=== PATIENT | female | born 1995 | race African-American/Black ===

== ENCOUNTER 2016-07-30 06:06 | Emergency (ER) ==
[2016-07-30 06:17] VITALS: BP 131/87
[2016-07-30 06:36] LABS: URINE CULTURE PL NEEDED? NO; URINE SOURCE CLEAN CATCH
[2016-07-30] MEDS ORDERED: NS 1,000 ML IV ONE (06:37)
[2016-07-30 06:49] LABS: BILIRUBIN URINE NEGATIVE (NEGATIVE); BLOOD URINE 4+ (NEGATIVE); CLARITY SL. CLOUDY (CLEAR); COLOR YELLOW; GLUCOSE URINE NEGATIVE (NEGATIVE); LEUKOCYTES URINE NEGATIVE (NEGATIVE); NITRITE URINE NEGATIVE (NEGATIVE); PROTEIN URINE 1+(30 mg/dL) mg/dL (NEGATIVE); SP GRAVITY URINE 1.025; UROBILINOGEN URINE NORMAL
--- NOTE | 2016-07-30 06:49 | PROVIDER DOCUMENTATION ---
HPI-Abdominal Pain/GI Problem - General Chief Complaint: Abdominal Pain Stated Complaint: PELVIC/PERIOD PAIN Time Seen by Provider: 07/30/16 06:22 Source: patient Allergies/Adverse Reactions: Patient Allergies Allergy/AdvReac Type Severity Reaction Status Date / Time venom-honey bee Allergy SWELLING Verified 07/30/16 06:17 [bee venom (honey bee)] venom-wasp [wasp venom] Allergy SWELLING Verified 07/30/16 06:17 - History of Present Illness-ABD Nature of Presenting Problems: Reports dysmenorrhea and lower bad pain since several weeks ago. Was seen at [facility] on 07/05/16 for it. Pt was given [place] (OCP) for her dysmenorrhea and her bleeding significantly slow down by now, but her lower abd pain got a whole lot worse. Denies F/C/N/V/preg. Denies vag discharge and no concerns for STD Abdominal Pain Onset Location: reports: suprapubic Pain Radiation: reports: no radiation Quality of Pain: reports: aching, cramping Severity in ED: reports: moderate Onset/Duration: reports: other (Severeal weeks ago) Timing: reports: still present Activities at Onset: reports: none Modifying Factors: improves with: nothing Associated Symptoms: reports: denies symptoms. denies: back/neck pain, chest pain, cough, fatigue, fever/chills, loss of appetite, malaise, nausea, shortness of breath, syncope, vomiting, weakness Dark Stools Present?: reports: none noticed Rectal Bleeding: reports: none Rectal Pain: reports: none Bruising or Bleeding Gums?: No Similar Symptoms Previously?: No Recently seen or treated by another doctor?: No Review of Systems - Adult - REVIEW OF SYSTEMS - ADULT Constitutional: reports: see HPI. denies: fever, fatique, weight gain, weight loss Eyes: reports: no symptoms reported. denies: discharge Ears, Nose, Mouth & Throat: reports: no symptoms reported Cardiovascular: reports: no symptoms reported. denies: chest pain Respiratory: reports: no symptoms reported Gastrointestinal: reports: see HPI, abdominal pain. denies: constipation, difficulty swallowing, frequent heartburn, nausea, poor appetite, rectal bleeding Genitourinary: reports: see HPI. denies: dysuria, discharge, hematuria, hesitency, urinary retention, urgency Musculoskeletal: reports: no symptoms reported Integumentary: reports: no symptoms reported Neurological: reports: no symptoms reported Psychiatric: reports: no symptoms reported Allergic/Immunologic: reports: no symptoms reported All Other Systems: Reviewed and Negative Past History - Adult - PAST MEDICAL HISTORY-ADULT Major Childhood Illnesses: reports: denies history Cardiovascular: reports: denies history Respiratory: reports: denies history Gastrointestinal: reports: denies history Obstetrical/Gynecological: reports: denies history Genitourinary: reports: denies history Musculoskeletal: reports: denies history Neurological: reports: headaches/migraines Psychiatric: reports: anxiety Endocrine/Immune: reports: denies history Other Conditions: reports: denies history - PRIOR SURGERIES/PROCEDURES Surgical/Procedure History: reports: other (wisdom teeth) - PRIOR HOSPITALIZATIONS Prior Hospitalizations: reports: none - IMMUNIZATION STATUS Childhood Immunizations: See Nurse Assessment Flu Vaccine: See Nurse Assessment - FAMILY HISTORY Family History: reviewed, not pertinent Physical Exam-General - PHYSICAL EXAM-ADULT Initial Vital Signs Reviewed: Yes - CONSTITUTIONAL General Appearance: appears well, alert, no apparent distress - EYES Eyes: PERRL/EOMI, pink conjunctivae - HEAD, EARS, NOSE, MOUTH & THROAT HENMT: normocephalic/atraumatic, moist mucous membranes, normal ENT inspection - NECK Neck: non-tender, full range of motion, supple - RESPIRATORY Respiratory: chest non-tender, lungs clear, normal breath sounds, no pleuratic chest pain - CARDIOVASCULAR Cardiovascular: normal peripheral pulses, regular rate, rhythm, no edema, no gallop, no JVD, no murmur - GASTROINTESTINAL (ABDOMEN) Abdominal Exam: normal bowel sounds, non tender, soft, no organomegaly, no pulsatile mass - GENITOURINARY Female Genitalia/Pelvic Exam: deferred, other (Pt's bleediing significantly slowed down and no concerns for STD, she denies preg.) - LYMPHATIC Lymphatic: no adenopathy - MUSCULOSKELETAL Back Exam: normal inspection, no CVA tenderness, no vertebral tenderness Extremity: normal range of motion, non-tender, normal gait, normal inspection - SKIN Integumentary: normal color, normal turgor, warm/dry - NEUROLOGIC Neurologic: grossly normal, no motor/sensory deficits, abnormal cerebellar tests - PSYCHIATRIC Psych/Mental Status: normal mood/affect, normal thought content, normal thought process, oriented x 3 Progress - CT/MRI 1 CT Study: other (CT A+P with IV contrast - distended gallbladder. No bowel obstruction. No abscess, no hydronephorosis.) Departure - Departure Time of Disposition Order: 08:59 DIAGNOSIS: Dysmenorrhea Abdominal pain Qualifiers: Abdominal location: lower abdomen, unspecified Qualified Code(s): R10.30 - Lower abdominal pain, unspecified Disposition: HOME 01 Certified Medical Emergency: Emergent Condition: Stable Additional Instructions: Follow up with [facility] for further management. Return to ER if your symptoms worsen. Plenty of roal fluids. Over the counter Iron pills. Prescriptions: Tramadol [Ultram] 50 mg PO Q8HR #15 tablet Referrals: Jonathan Jean-Baptiste MD [Primary Care Provider] -
[2016-07-30 06:53] LABS: MANUAL DIFF NEEDED? NO
[2016-07-30 07:02] LABS: BASO% 0.2 % (0.0-0.8); EOS# 0.07 X1000 (0.0-0.7); EOS% 0.8 % (0.0-10.0); HEMATOCRIT 27.2 % (37.0-47.0); HEMOGLOBIN 8.6 g/dL (12.0-16.0); IMM GRAN# 0.01 X1000 (0.0-0.04); IMM GRAN% 0.1 % (0.0-0.5); LYMPH% 38.6 % (20.5-51.1); MCH 27.5 PG (27-31); MCHC 31.6 g/dL (33-37); MCV 86.9 FL (81-99); MONO# 0.79 X1000 (0.11-0.59); MPV 8.7 FL (7.4-10.4); NEUT% 51.3 % (42.2-75.2); PLT 430 X1000 (130-400); RBC 3.13 XMIL (4.2-5.4)
[2016-07-30 07:26] LABS: AGAP 10; ALBUMIN 3.3 g/dL (3.5-5.0); ALKALINE PHOSPHATASE 47 U/L (32-104); AMYLASE 82 U/L (20-200); BUN 8 mg/dL (8-22); CALCIUM 8.7 mg/dL (8.8-10.2); CHLORIDE 110 mmol/L (98-107); COSMO 282; GOT 16 U/L (10-30); GPT 29 U/L (10-36); LIPASE 66 U/L (13-60); POTASSIUM 3.4 mmol/L (3.5-5.1); SODIUM 142 mmol/L (136-145); TCO2 23 mmol/L (25-35); TOTAL BILIRUBIN < 0.15 mg/dL (0.20-1.00); TOTAL PROTEIN 6.7 g/dL (6.3-8.3)
[2016-07-30 07:28] LABS: URINE EPITHELIAL CELLS >10 /HPF (<10); URINE RBC TNTC /HPF (<10); URINE WBC <10 /HPF (<10)
[2016-07-30] MEDS ORDERED: MORPHINE IV ONE (07:32)
[2016-07-30] MEDS ORDERED: ZOFRAN IV ONE (07:32)
--- NOTE | 2016-07-30 09:07 | Diag Imaging Result Document ---
PROCEDURE NAME: CT ABD/PELVIS W/ IV CONT ONLY - 07/30/2016 CT ABDOMEN AND PELVIS WITH INTRAVENOUS CONTRAST. DOSE REDUCTION TECHNIQUE NOT USED: COMPARISON: No comparison films. FINDINGS: The gallbladder is distended. No calcified stones or adjacent inflammation. Normal spleen, liver, pancreas, adrenal glands, and kidneys. No hydronephrosis. Normal aorta. No bowel obstruction. No inflammation about the cecum. No abscess. There are small bilateral ovarian cysts. A small amount of fluid is found within the uterus. The uterus is not enlarged. The urinary bladder is not distended. IMPRESSION: 1. Distended gallbladder. An ultrasound may be beneficial. 2. No bowel obstruction. No abscess. A preliminary report was given at 8:51 a.m.
== END 2016-07-30 09:14 | disposition home or self-care (01) ==
LOC: P.ED 06:06
DX: N94.6 Dysmenorrhea, unspecified (principal); R10.30 Lower abdominal pain, unspecified; R10.2 Pelvic and perineal pain; K82.8 Other specified diseases of gallbladder
CPT/HCPCS: 74177; 80053; 81001; 81025; 82150; 83690; 85025; 96361; 96374; 96375; J2270; J2405; J7030; Q9967

== ENCOUNTER 2016-09-25 15:18 | Emergency (ER) ==
[2016-09-25] MEDS ORDERED: NS 1,000 ML IV ONE (15:41)
--- NOTE | 2016-09-25 16:00 | PROVIDER DOCUMENTATION ---
HPI-Abdominal Pain/GI Problem - General Chief Complaint: Nausea/Vomiting Stated Complaint: NAUSEA,VOMITING Time Seen by Provider: 09/25/16 15:26 Source: patient Allergies/Adverse Reactions: Patient Allergies Allergy/AdvReac Type Severity Reaction Status Date / Time venom-honey bee Allergy SWELLING Verified 09/25/16 15:34 [bee venom (honey bee)] venom-wasp [wasp venom] Allergy SWELLING Verified 09/25/16 15:34 Home Medications: Home Medication List Medication Instructions Recorded Confirmed Last Taken Type No Home Medications 09/07/16 09/25/16 Unknown History - History of Present Illness-ABD Nature of Presenting Problems: Reports to er with cc of nausea and vomiting x 2 weeks. Reports went to [facility] "the other day" which reports she is approximately 5 1/2 weeks per pt. Reports vomited x 2 today but stays nauseated all day everyday. Denies f,abd pain,vaginal bleeding or discharge,medical hx. Reports is a smoker but wants to quit now that she knows she is . Quality of Pain: reports: none Severity in ED: reports: moderate Onset/Duration: reports: other (2 weeks) Timing: reports: still present Last BM: unsure Dark Stools Present?: reports: none noticed Rectal Bleeding: reports: none Rectal Pain: reports: none Emesis Description: reports: none Bruising or Bleeding Gums?: No Similar Symptoms Previously?: No Recently seen or treated by another doctor?: No Review of Systems - Adult - REVIEW OF SYSTEMS - ADULT Constitutional: denies: chills, fever, fatique Eyes: reports: no symptoms reported Ears, Nose, Mouth & Throat: denies: ear pain, sinus problem, throat pain Cardiovascular: denies: chest pain, irregular heart rate, orthopnea, syncope Respiratory: denies: cough, shortness of breath, wheezing Gastrointestinal: reports: nausea, vomiting. denies: abdominal pain, diarrhea, difficulty swallowing, frequent heartburn Genitourinary: reports: no symptoms reported Musculoskeletal: reports: no symptoms reported Integumentary: reports: no symptoms reported Neurological: reports: no symptoms reported Psychiatric: reports: no symptoms reported Endocrine: reports: no symptoms reported Hematologic/Lymphatic: reports: no symptoms reported Allergic/Immunologic: reports: no symptoms reported All Other Systems: Reviewed and Negative Past History - Adult - PAST MEDICAL HISTORY-ADULT Review of Records: reports: Nursing Assessment Review, Medications Reviewed Major Childhood Illnesses: reports: denies history Neurological: reports: headaches/migraines Psychiatric: reports: anxiety - PRIOR SURGERIES/PROCEDURES Surgical/Procedure History: reports: other (wisdom teeth) - IMMUNIZATION STATUS Childhood Immunizations: See Nurse Assessment Flu Vaccine: See Nurse Assessment - SOCIAL HISTORY Smoking: cigarettes, less than 1 pack/day Provider spent 3-5 mins advising pt. on dangers of tobacco.: Discussed manners to quit use, and f/u contacts for add'l counseling. Substance Use: alcohol Alcohol Use Frequency: occasionally Physical Exam-General - PHYSICAL EXAM-ADULT Initial Vital Signs Reviewed: Yes - CONSTITUTIONAL General Appearance: appears well, alert, no apparent distress - EYES Eyes: PERRL/EOMI, pink conjunctivae - HEAD, EARS, NOSE, MOUTH & THROAT HENMT: moist mucous membranes, normal ENT inspection, pharynx normal - NECK Neck: non-tender, full range of motion, supple, normal inspection - RESPIRATORY Respiratory: chest non-tender, lungs clear, normal breath sounds, no pleuratic chest pain, no respiratory distress, no accessory muscle use - CARDIOVASCULAR Cardiovascular: regular rate, rhythm, no edema, no gallop, no JVD, no murmur - GASTROINTESTINAL (ABDOMEN) Abdominal Exam: normal bowel sounds, non tender, soft, no organomegaly, no pulsatile mass - MUSCULOSKELETAL Extremity: normal range of motion, non-tender, normal gait - SKIN Integumentary: normal color, normal turgor, warm/dry - PSYCHIATRIC Psych/Mental Status: normal mood/affect, normal thought content, normal thought process, oriented x 3 Progress - PLAN OF CARE/RESULTS Progress/Plan/Lab Results: Orders Category Date Time Status IV Insertion ORDERED Care 09/25/16 15:41 Active US OBS COMPLETE < 14 WKS [US] Stat Exams 09/25/16 15:41 Ordered ACETONE SERUM [CHEM] Stat Lab 09/25/16 15:59 Ordered CBC WITH DIFF [HEME] Stat Lab 09/25/16 15:59 Ordered COMPREHENSIVE METABOLIC PANEL [CHEM] Stat Lab 09/25/16 15:59 Ordered QUANT TEST Stat Lab 09/25/16 15:59 Ordered URINALYSIS W/POSS RFLX CULT [URINALYSIS] Stat Lab 09/25/16 15:59 Ordered 0.9% Sodium Chloride Inj [Ns] 1,000 ml Med 09/25/16 15:41 Active IV 999 mls/hr Vital Signs - 24 hr 09/25/16 15:21 Temperature 98.9 F Pulse Rate 83 Respiratory 18 Rate Blood Pressure 143/75 O2 Sat by Pulse 97 Oximetry Laboratory Tests 09/25/16 09/25/16 09/25/16 15:50 15:50 15:50 WBC 8.87 RBC 3.97 L Hgb 9.5 L Hct 30.4 L MCV 76.6 L MCH 23.9 L MCHC 31.3 L RDW Std Deviation 15.0 H Plt Count 464 H MPV 8.6 Immature Gran % (Auto) 0.0 Neut % (Auto) 64.1 Lymph % (Auto) 25.8 [place] % (Auto) 9.8 H Eos % (Auto) 0.1 Baso % (Auto) 0.2 Immature Gran # (Auto) 0.00 Neut # (Auto) 5.68 Lymph # (Auto) 2.29 [place] # (Auto) 0.87 H Eos # (Auto) 0.01 Baso # (Auto) 0.02 Sodium 131 L Potassium 3.6 Chloride 96 L Carbon Dioxide 22 L Anion Gap 13 BUN 9 Creatinine 0.6 Estimated GFR/1.73 m2 > 60 BUN/Creatinine Ratio 15 Glucose 97 Calculated Osmolality 261 Calcium 9.3 Total Bilirubin 0.22 AST 12 ALT 14 Alkaline Phosphatase 58 Total Protein 7.4 Albumin 4.0 Globulin 3.4 Albumin/Globulin Ratio 1.2 Ser , Semi-Qnt 03501.0 Urine Source Urine Color Urine Turbidity Urine pH Ur Specific Ault Urine Protein Ur Glucose (Stick) Ur Ketones (Stick) Urine Blood Urine Nitrite Urine Bilirubin Urobilinogen Dipstick Urine Leukocytes Urine WBC (Auto) Urine RBC (Auto) U Epithel Cells (Auto) Urine Bacteria (Auto) Acetone Level NEGATIVE 09/25/16 15:50 WBC RBC Hgb Hct MCV MCH MCHC RDW Std Deviation Plt Count MPV Immature Gran % (Auto) Neut % (Auto) Lymph % (Auto) [place] % (Auto) Eos % (Auto) Baso % (Auto) Immature Gran # (Auto) Neut # (Auto) Lymph # (Auto) [place] # (Auto) Eos # (Auto) Baso # (Auto) Sodium Potassium Chloride Carbon Dioxide Anion Gap BUN Creatinine Estimated GFR/1.73 m2 BUN/Creatinine Ratio Glucose Calculated Osmolality Calcium Total Bilirubin AST ALT Alkaline Phosphatase Total Protein Albumin Globulin Albumin/Globulin Ratio Ser , Semi-Qnt Urine Source CLEAN CATCH Urine Color YELLOW Urine Turbidity CLEAR Urine pH 6.5 Ur Specific Ault 1.036 Urine Protein 30 A Ur Glucose (Stick) NEGATIVE Ur Ketones (Stick) TRACE A Urine Blood NEGATIVE Urine Nitrite NEGATIVE Urine Bilirubin NEGATIVE Urobilinogen Dipstick NORMAL Urine Leukocytes NEGATIVE Urine WBC (Auto) <10 Urine RBC (Auto) <10 U Epithel Cells (Auto) <10 Urine Bacteria (Auto) NEGATIVE Acetone Level - ULTRASOUND (By Radiology) 1 US Study: Abdomen, Pelvic Impression: Abnormal (living untrauterine , small ovarian cyst. otherwise unremarkable), See EMR Report (estimated gestational age is 6weeks 6 days+/-4days) Departure - Departure Time of Disposition Order: 17:05 DIAGNOSIS: 6 weeks gestation of Nausea & vomiting Qualifiers: Vomiting type: unspecified Vomiting Intractability: non-intractable Qualified Code(s): R11.2 - Nausea with vomiting, unspecified Disposition: HOME 01 Certified Medical Emergency: Emergent Condition: Stable Additional Instructions: Follow up with OBGYN ED Follow Up Instructions: You have been treated by a care provider in the Emergency Department. These instructions are being provided to you so you can have an understanding of how to care for yourself upon discharge. Upon discharge from the Emergency Department, you are responsible for making arrangements for follow-up care by a physician of your choice. Take all prescribed medications as directed. Return to the Emergency Department immediately for any new or worsening symptoms. You may call the Physician Referral phone number at [phone] to obtain a list of Physicians who are taking new patients. Referrals: Jonathan Jean-Baptiste MD [Primary Care Provider] - Power Echols MD [STAFF PHYSICIAN] - Attestation - Scribe Verification/Attestation Scribe:: Kimani Patel Acting as Scribe for:: Sree Burks Scribe documention review:: This chart was documented by a scribe and accurately reflects the service the provider performed and the decisions made by the provider.
[2016-09-25 16:05] LABS: MANUAL DIFF NEEDED? NO; URINE CULTURE NEEDED? NO; URINE MICRO REVIEW NEEDED? NO; URINE SOURCE CLEAN CATCH
[2016-09-25 16:10] LABS: BASO% 0.2 % (0.0-0.8); EOS# 0.01 X1000 (0.0-0.7); EOS% 0.1 % (0.0-10.0); HEMATOCRIT 30.4 % (37.0-47.0); HEMOGLOBIN 9.5 g/dL (12.0-16.0); LYMPH# 2.29 X1000 (1.2-3.4); LYMPH% 25.8 % (20.5-51.1); MCH 23.9 PG (27-31); MCHC 31.3 g/dL (33-37); MCV 76.6 FL (81-99); MONO# 0.87 X1000 (0.11-0.59); MONO% 9.8 % (1.7-9.3); MPV 8.6 FL (7.4-10.4); NEUT% 64.1 % (42.2-75.2); PLT 464 X1000 (130-400); RBC 3.97 XMIL (4.2-5.4)
[2016-09-25 16:12] LABS: BILIRUBIN URINE NEGATIVE (NEGATIVE); BLOOD URINE NEGATIVE (NEGATIVE); COLOR YELLOW; GLUCOSE URINE NEGATIVE (NEGATIVE); LEUKOCYTES URINE NEGATIVE (NEGATIVE); NITRITE URINE NEGATIVE (NEGATIVE); PH URINE 6.5; PROTEIN URINE 30 mg/dL (NEGATIVE); SP GRAVITY URINE 1.036; TURBIDITY URINE CLEAR (CLEAR); UR EPITHELIAL CELLS <10 /HPF (<10); URINE BACTERIA NEGATIVE /HPF; URINE RBC <10 /HPF (<10); URINE WBC <10 /HPF (<10); UROBILINOGEN URINE NORMAL (NORMAL)
[2016-09-25 16:29] LABS: ACETONE SERUM NEGATIVE (NEGATIVE)
[2016-09-25 16:30] LABS: AGAP 13; ALKALINE PHOSPHATASE 58 U/L (32-104); BUN 9 mg/dL (8-22); CALCIUM 9.3 mg/dL (8.8-10.2); CHLORIDE 96 mmol/L (98-107); COSMO 261; GOT 12 U/L (10-30); GPT 14 U/L (10-36); POTASSIUM 3.6 mmol/L (3.5-5.1); SODIUM 131 mmol/L (136-145); TCO2 22 mmol/L (25-35); TOTAL BILIRUBIN 0.22 mg/dL (0.20-1.00); TOTAL PROTEIN 7.4 g/dL (6.3-8.3)
--- NOTE | 2016-09-25 16:47 | Diag Imaging Result Document ---
PROCEDURE NAME: US OBS COMPLETE < 14 WKS - 09/25/2016 OB ULTRASOUND: COMPARISON: CT abdomen and pelvis, 07/30/2016. FINDINGS: There is a single intrauterine . Estimated gestational age is 6 weeks 6 days + /-4 days. Estimated delivery date is 05/15/2017. Normal gestational sac, pole and yolk sac. There is a right ovarian cyst measuring 2.5 cm. The left ovary is obscured. No free fluid. The cervix is closed. heart rate is present at 153 beats per minute. IMPRESSION: Living intrauterine . Small right ovarian cyst. Otherwise, unremarkable.
[2016-09-25 17:35] VITALS: BP 116/56
== END 2016-09-25 17:48 | disposition home or self-care (01) ==
LOC: ED 15:18
DX: O26.891 Other specified pregnancy related conditions, first trimester (principal); R11.0 Nausea; O21.9 Vomiting of pregnancy, unspecified; O99.331 Smoking (tobacco) complicating pregnancy, first trimester; F17.210 Nicotine dependence, cigarettes, uncomplicated; Z3A.01 Less than 8 weeks gestation of pregnancy; Z71.6 Tobacco abuse counseling
CPT/HCPCS: 76801; 80053; 81001; 82009; 84702; 85025; J7030

== ENCOUNTER 2019-01-28 06:46 | Observation (INO) ==
[~2019-01-28 06:46] MED LIST: DECADRON ONE; DIPRIVAN 1% ONE; MORPHINE ONE; QUELICIN (DOSE) ONE; ROBINUL ONE; SODIUM CHLORIDE 0.9% 10 ML ONE; XYLOCAINE-MPF 2% ONE; ZEMURON ONE; ZOFRAN ONE
[2019-01-28] MEDS ORDERED: NAROPIN 0.2% ONE (07:21)
[2019-01-28] MEDS ORDERED: PEPCID ONE (07:34)
[2019-01-28] MEDS ORDERED: TRANSDERM-SCOP ONE (07:35)
[2019-01-28] MEDS ORDERED: LR 1,000 ML ONE ×2 (07:35→09:44)
[2019-01-28] MEDS ORDERED: REGLAN ONE (07:35)
[2019-01-28] MEDS ORDERED: PRECEDEX ONE (07:58)
[2019-01-28] MEDS ORDERED: ROBINUL ONE (08:19)
[2019-01-28] MEDS ORDERED: NS ONE (08:19)
[2019-01-28] MEDS ORDERED: EPHEDRINE ONE (08:47)
[2019-01-28] MEDS ORDERED: SODIUM CHLORIDE 0.9% 10 ML ONE (08:47)
[2019-01-28] MEDS ORDERED: AFRIN NASAL SPRAY ONE (08:58)
[2019-01-28] MEDS ORDERED: NEO-SYNEPHRINE 1% NASAL SPRAY ONE (09:00)
[2019-01-28] MEDS: HYDROCODONE/APAP 7.5-325/15 ML ONE ×2 (10:09→20:19)
[2019-01-28] MEDS ORDERED: LR 1,000 ML IV SCH (13:00)
[2019-01-28] MEDS: HYDROCODONE/APAP 7.5-325/15 ML PO PRN ×3 (13:22→23:27)
--- NOTE | 2019-01-28 14:55 | OPERATIVE NOTE ---
PROCEDURE DATE: 01/28/2019 PREOPERATIVE DIAGNOSES: 1. Adenotonsillar hypertrophy. 2. Obstructive sleep apnea. POSTOPERATIVE DIAGNOSES: 1. Adenotonsillar hypertrophy. 2. Obstructive sleep apnea. PROCEDURE: Adenotonsillectomy. COMPLICATIONS: None. ANESTHESIA: General with endotracheal intubation. FINDINGS: 3+ adenoids, 3+ tonsils. DESCRIPTION OF PROCEDURE: The patient was identified and consent was obtained. The patient was taken to the operating room and placed in the supine position where general anesthesia was induced with endotracheal intubation. The patient was placed in position with a shoulder roll and slight head extension. McIvor mouth gag was placed. Transnasal red rubber catheter was placed and brought out through the mouth for gentle soft palate retraction. The plate, having been inspected first, was noted not to have any bifid uvula or palpable submucosal cleft. Indirect nasopharyngeal visualization revealed no masses or mucosal lesions or tumors or obstructions. Adenoid tissue was obliterated using suction Bovie cautery technique. Meticulous attention was paid to hemostasis using electrocautery. Throat and nasopharynx was irrigated and then suctioned. Next, the red rubber catheter was removed and the right tonsil was grasped. Medial traction was placed. Anterior mucosal incision was performed through which a capsule dissection facilitated removal of the tonsil. Meticulous attention was paid to removal of the entire tonsil tissue, as well as preservation of the anterior and posterior tonsil pillar musculature and hemostasis using electrocautery. Ropivacaine 0.2% was injected into the tonsil fossa. Contralateral tonsillectomy was performed in a similar fashion. Throat irrigation and suction was performed prior to extubation. The patient was extubated and transferred to the recovery room in stable condition. cc: Doug Woodson MD
[2019-01-28] MEDS: DECADRON IV SCH (16:14)
[2019-01-28] MEDS ORDERED: ZOFRAN PO PRN ×2 (19:22→19:44)
[2019-01-28] MEDS ORDERED: PHENERGAN IV PRN (21:43)
[2019-01-28] MEDS ORDERED: SODIUM CHLORIDE 0.9% INJ PRN (21:43)
[2019-01-29] MEDS: DECADRON IV SCH (00:52)
[2019-01-29] MEDS: HYDROCODONE/APAP 7.5-325/15 ML PO PRN (06:43)
[2019-01-29 09:53] VITALS: BP 125/52
== END 2019-01-29 09:15 | disposition home or self-care (01) ==
LOC: OR 06:46 → SURHOLD 06:46 → ICU 12:06
PROVIDERS: ADMIT Otolaryngology Otolaryngology/Facial Plastic Surgery; ATTEND Otolaryngology Otolaryngology/Facial Plastic Surgery
PROC: ENT.ADN (2019-01-28 08:36)
CPT/HCPCS: 81025; 88304; 94640; A9270; J0330; J1100; J2270; J2405; J2550; J2795; J7120